=== PATIENT | male | born 1980 | race Caucasian/White ===

== ENCOUNTER → 2019-02-10 | Outpatient (CLI) | payer OTHER ==
--- NOTE | 2019-02-10 10:32 | RADIOLOGY REPORT (SQ) ---
EXAM DESCRIPTION: DUPLEX ART/ROCKY FLOW COMPLETE COMPLETED DATE/TIME: 02/10/2019 9:39 am REASON FOR STUDY: MEAGAN (I70.1) COMPARISON: None. TECHNIQUE: Realtime and static grayscale images acquired. Selected color Doppler, velocities and spe ctral images recorded. LIMITATIONS: None. FINDINGS: RIGHT KIDNEY: RENAL ARTERY VELOCITIES: 54 cm/sec. Segmental artery velocity 43 cm/sec. RENAL VEIN: Color doppler flow present, patent. VELOCITY RATIO: 0.425. Normal waveforms. KIDNEY: 8.8 cm. No significant pathology. LEFT KIDNEY: RENAL ARTERY VELOCITIES: 83 cm/sec. Segmental artery velocity 91 cm/sec. RENAL VEIN: Color doppler flow present, patent. VELOCITY RATIO: 0.591.. Normal waveforms. KIDNEY: 13.3 No significant pathology. BLADDER: Normal. OTHER: No other significant finding. IMPRESSION: NO DOPPLER EVIDENCE OF HEMODYNAMICALLY SIGNIFICANT RENAL ARTERY STENOSIS. SMALL RIGHT KIDNEY. COMMENT: NORMAL RENAL ARTERY/AORTA VELOCITY RATIO IS LESS THAN OR EQUAL TO 3.5. TECHNICAL DOCUMENTATION: JOB ID: [id number] [employer]- All Rights Reserved Reading location - IP/workstation name: [email or web address]
== END ==
LOC: RAD 08:35
PROVIDERS: ATTEND General Practice
DX: I70.1 Atherosclerosis of renal artery (principal); I10 Essential (primary) hypertension
CPT/HCPCS: 93975